=== PATIENT | male | born 1955 | race Caucasian/White ===

== ENCOUNTER 2018-10-29 20:29 | Inpatient (IN) ==
[2018-10-29] MEDS ORDERED: ONDANSETRON 4 MG/2 ML VIAL IV STA (20:59)
[2018-10-29] MEDS ORDERED: MORPHINE 4 MG/1 ML VIAL IV STA (20:59)
[2018-10-29] MEDS ORDERED: ALUM/MAG/SIMETH/LIDO VISC 1:1 30 ML BOTTLE PO STA (20:59)
[2018-10-29] MEDS ORDERED: SODIUM CHLORIDE 0.9% 1,000 ML IV STA (20:59)
[2018-10-29 21:18] LABS: Basophils # 0.1 10*3/uL (0.0-0.2); Basophils % 0.4 % (0.0-0.8); Eosinophils # 0.1 10*3/uL (0.0-0.87); Eosinophils % 0.6 % (0.00-10.9); Hematocrit 50.5 VOL% (42.0-52.0); Hemoglobin 16.2 GM/DL (14.0-18.0); Immature Granulocytes % 0.5 %; Immature Granulocytes Absolute 0.07 #; Lymphocytes # 1.2 10*3/uL (1.4-4.0); Lymphocytes % 8.3 % (21.2-54.2); Mean Corpuscular HGB Conc 32.1 GM/DL (32-36); Mean Corpuscular Volume 94.2 FL (87-102); Mean Platelet Volume 11.3 FL (9.6-12.0); Monocytes % 9.3 % (1.7-12.7); Neutrophils % 80.9 % (38.7-73.9); Platelet Count 184 T/CUMM (130-400); Red Blood Count 5.36 MC/CUMM (3.8-5.5); Red Cell Distribution Width 12.5 % (9.3-17.3); White Blood Count 14.1 T/CUMM (4-12)
[2018-10-29 21:37] LABS: Amorphous Crystals,Urine Occasional /HPF (Few); Apearance,Urine CLOUDY (Clear); Bilirubin,Urine Negative (Negative); Blood, Urine Negative (Negative); Glucose,Urine (UA) Negative (Negative); Ketones,Urine Negative (Negative); Mucus,Urine Occasional /LPF (Occasional); Nitrite,Urine Negative (Negative); Protein,Urine 30 MG/DL; RBC,Urine 5 /HPF (0-4); Urine Color Yellow (Yellow); Urine Specific Gravity 1.018 (1.001-1.035); Urine Urobilinogen < 2.0 EU/DL (0.2-1.0)
[2018-10-29 21:41] LABS: Albumin 3.5 G/DL (3.4-5.0); Bilirubin,Total 0.4 MG/DL (0.2-1.0); Calcium 7.4 MG/DL (8.5-10.1); Osmolality,Calculated 276.7 MOS/KG (273-304); Total Protein 6.3 G/DL (6.4-8.3)
[2018-10-29] MEDS ORDERED: CEFEPIME 1,000 MG in SODIUM CHLORIDE 0.9% 100 ML IV STA (22:33)
[2018-10-29] MEDS ORDERED: ACETAMINOPHEN 325 MG TABLET PO PRN (22:38)
[2018-10-29] MEDS ORDERED: ONDANSETRON 4 MG/2 ML VIAL IV PRN (22:38)
[2018-10-29] MEDS ORDERED: DEXTROSE 5% NACL 0.45% 1,000 ML IV SCH (23:00)
[2018-10-30] MEDS ORDERED: cefOXitin 2,000 MG in SYRINGE 1 EACH IV SCH
[2018-10-30] MEDS ORDERED: ONDANSETRON 4 MG/2 ML VIAL IV PRN (00:15)
[2018-10-30] MEDS ORDERED: ACETAMINOPHEN 325 MG TABLET PO PRN (00:15)
[2018-10-30] MEDS: DEXTROSE 5% NACL 0.45% 1,000 ML IV SCH ×2 (00:33→10:46)
[2018-10-30 05:25] LABS: Basophils % 0.3 % (0.0-0.8); Eosinophils % 0.2 % (0.00-10.9); Hematocrit 49.8 VOL% (42.0-52.0); Immature Granulocytes % 0.6 %; Immature Granulocytes Absolute 0.09 #; Lymphocytes % 7.2 % (21.2-54.2); Mean Corpuscular HGB Conc 32.1 GM/DL (32-36); Mean Corpuscular Volume 94.7 FL (87-102); Mean Platelet Volume 11.4 FL (9.6-12.0); Monocytes % 10.6 % (1.7-12.7); Neutrophils % 81.1 % (38.7-73.9); Platelet Count 166 T/CUMM (130-400); Red Blood Count 5.26 MC/CUMM (3.8-5.5); Red Cell Distribution Width 12.6 % (9.3-17.3)
[2018-10-30 05:57] LABS: Albumin 3.1 G/DL (3.4-5.0); Calcium 7.2 MG/DL (8.5-10.1); Osmolality,Calculated 274.8 MOS/KG (273-304)
[2018-10-30] MEDS ORDERED: PANTOPRAZOLE 40 MG TABLET PO SCH (09:00)
[2018-10-30] MEDS: PANTOPRAZOLE 40 MG VIAL IV SCH (10:48)
[2018-10-30] MEDS ORDERED: CLINDAMYCIN INJ 900 MG in PREMIX 1 EACH IV ONE (12:13)
[2018-10-30] MEDS: METOPROLOL TARTRATE 25 MG TABLET PO SCH ×2 (12:25→22:02)
[2018-10-30] MEDS ORDERED: LIDOCAINE 1%/EPI INJ 20 ML VIAL ONE (14:04)
[2018-10-30] MEDS ORDERED: BUPIVACAINE 0.25% /EPI 10 ML VIAL ONE (14:04)
[2018-10-30] MEDS ORDERED: LEVOFLOXACIN INJ 100 ML IV ONE ×2 (18:21→18:22)
[2018-10-30] MEDS ORDERED: MICROFIBRILLAR COLLAGEN POWDER 1 GM CAN TOP ONE (19:14)
[2018-10-30] MEDS ORDERED: MIDAZOLAM 2 MG/2 ML VIAL ONE (20:02)
[2018-10-30] MEDS ORDERED: fentaNYL 100 MCG/2 ML VIAL ONE (20:02)
[2018-10-30] MEDS ORDERED: PROPOFOL 200 MG/20 ML VIAL IV ONE (20:02)
[2018-10-30] MEDS ORDERED: SEVOFLURANE 1 UNIT/15 MINUTE INH ONE (20:02)
[2018-10-30] MEDS ORDERED: LACTATED RINGERS 1,000 ML IV ONE (20:03)
[2018-10-30] MEDS ORDERED: PHENYLEPHRINE 1 MG/10 ML SYRINGE IV ONE (20:03)
[2018-10-30] MEDS ORDERED: ACETAMINOPHEN 1,000 MG/100 ML VIAL IV ONE (20:03)
[2018-10-30] MEDS ORDERED: ROCURONIUM 100 MG/10 ML VIAL IV ONE (20:03)
[2018-10-30 20:06] LABS: Hematocrit 48.9 VOL% (42.0-52.0); Hemoglobin 15.9 GM/DL (14.0-18.0)
[2018-10-31] MEDS: DEXTROSE 5% NACL 0.45% 1,000 ML IV SCH ×4 (01:38→20:51)
[2018-10-31 04:55] LABS: Basophils % 0.2 % (0.0-0.8); Hematocrit 45.1 VOL% (42.0-52.0); Hemoglobin 14.9 GM/DL (14.0-18.0); Immature Granulocytes % 0.5 %; Immature Granulocytes Absolute 0.08 #; Lymphocytes # 0.8 10*3/uL (1.4-4.0); Lymphocytes % 5.3 % (21.2-54.2); Mean Corpuscular Volume 93.2 FL (87-102); Mean Platelet Volume 11.5 FL (9.6-12.0); Monocytes % 9.8 % (1.7-12.7); Neutrophils % 84.2 % (38.7-73.9); Platelet Count 156 T/CUMM (130-400); Red Blood Count 4.84 MC/CUMM (3.8-5.5); Red Cell Distribution Width 12.8 % (9.3-17.3)
[2018-10-31 05:14] LABS: INR 1.4; PT Patient Result 14.7 SECS
[2018-10-31 05:16] LABS: Albumin 2.5 G/DL (3.4-5.0); Bilirubin,Total 1.2 MG/DL (0.2-1.0); Osmolality,Calculated 263.7 MOS/KG (273-304); Total Protein 5.6 G/DL (6.4-8.3)
[2018-10-31 05:26] LABS: Calcium 5.7 MG/DL (8.5-10.1)
[2018-10-31] MEDS ORDERED: CALCIUM GLUCONATE 2,000 MG in SODIUM CHLORIDE 0.9% 100 ML IV ONE (08:00)
[2018-10-31] MEDS: PANTOPRAZOLE 40 MG VIAL IV SCH (09:21)
[2018-10-31] MEDS: METOPROLOL TARTRATE 25 MG TABLET PO SCH ×2 (09:22→20:53)
[2018-10-31] MEDS: CALCIUM (CARBONATE) 600 MG TABLET PO SCH ×2 (09:22→20:53)
[2018-10-31] MEDS: DILTIAZEM CD 120 MG CAPSULE PO SCH (09:22)
[2018-10-31] MEDS: CIPROFLOXACIN INJ 400 MG in PREMIX 1 EACH IV SCH ×2 (10:49→22:47)
[2018-10-31] MEDS ORDERED: SIMVASTATIN 10 MG TABLET PO SCH (21:00)
[2018-10-31] MEDS ORDERED: ASPIRIN EC 81 MG TABLET PO SCH (21:00)
[2018-11-01] MEDS: DEXTROSE 5% NACL 0.45% 1,000 ML IV SCH ×2 (00:46→08:30)
[2018-11-01 05:12] LABS: Basophils % 0.2 % (0.0-0.8); Hematocrit 47.4 VOL% (42.0-52.0); Hemoglobin 15.4 GM/DL (14.0-18.0); Immature Granulocytes % 0.7 %; Immature Granulocytes Absolute 0.11 #; Lymphocytes # 0.8 10*3/uL (1.4-4.0); Lymphocytes % 5.4 % (21.2-54.2); Mean Corpuscular HGB Conc 32.5 GM/DL (32-36); Mean Corpuscular Volume 92.8 FL (87-102); Mean Platelet Volume 11.5 FL (9.6-12.0); Monocytes % 10.2 % (1.7-12.7); Neutrophils % 83.5 % (38.7-73.9); Platelet Count 161 T/CUMM (130-400); Red Blood Count 5.11 MC/CUMM (3.8-5.5); Red Cell Distribution Width 12.7 % (9.3-17.3); White Blood Count 15.4 T/CUMM (4-12)
[2018-11-01 05:56] LABS: Albumin 2.5 G/DL (3.4-5.0); Bilirubin,Total 0.9 MG/DL (0.2-1.0); Calcium 6.8 MG/DL (8.5-10.1); Osmolality,Calculated 261.7 MOS/KG (273-304); Total Protein 6.3 G/DL (6.4-8.3)
[2018-11-01] MEDS ORDERED: LEVOTHYROXINE 200 MCG TABLET PO SCH (06:30)
[2018-11-01] MEDS: DILTIAZEM CD 120 MG CAPSULE PO SCH (09:58)
[2018-11-01] MEDS: METOPROLOL TARTRATE 25 MG TABLET PO SCH (09:58)
[2018-11-01] MEDS: CALCIUM (CARBONATE) 600 MG TABLET PO SCH (09:59)
[2018-11-01] MEDS: PANTOPRAZOLE 40 MG VIAL IV SCH (09:59)
[2018-11-01] MEDS: CIPROFLOXACIN INJ 400 MG in PREMIX 1 EACH IV SCH (10:03)
[2018-11-01 16:48] VITALS: BP 164/95
== END 2018-11-01 16:10 | disposition home or self-care (01) | DRG 419 ==
LOC: N.ED 20:29 → N.EDINP 20:29 → N.3E 23:31
PROVIDERS: ADMIT Surgery; ATTEND Surgery
PROC: LAPCHOL (2018-10-30 17:50)

== ENCOUNTER 2021-06-07 10:01 | Inpatient (IN) ==
[2021-06-07 10:47] LABS: Basophils % 0.3 % (0.0-0.8); Eosinophils % 0.1 % (0.00-10.9); Hematocrit 39.2 VOL% (42.0-52.0); Hemoglobin 13.2 GM/DL (14.0-18.0); Immature Granulocytes % 0.6 %; Immature Granulocytes Absolute 0.04 #; Lymphocytes # 0.8 10*3/uL (1.4-4.0); Lymphocytes % 10.8 % (21.2-54.2); Mean Corpuscular HGB Conc 33.7 GM/DL (32-36); Mean Corpuscular Volume 92.5 FL (87-102); Mean Platelet Volume 9.4 FL (9.6-12.0); Monocytes % 19.7 % (1.7-12.7); Neutrophils % 68.5 % (38.7-73.9); Platelet Count 225 T/CUMM (130-400); Red Blood Count 4.24 MC/CUMM (3.8-5.5); Red Cell Distribution Width 13.2 % (9.3-17.3)
[2021-06-07 11:08] LABS: Albumin 2.9 G/DL (3.4-5.0); Band Neutrophils 3 % (0-10); Bilirubin,Total 0.4 MG/DL (0.20-1.00); Calcium 8.2 MG/DL (8.5-10.1); Lymphocytes 12 % (20-55); Metamyelocytes 1 %; Osmolality,Calculated 240.2 MOS/KG (273-304); Potassium 4.6 MMOL/L (3.5-5.1); Segmented Neutrophils 64 % (50-85); Total Cells Counted 100; Total Protein 6.2 G/DL (6.4-8.2)
[2021-06-07 11:09] LABS: Platelet Estimate Normal
[2021-06-07 11:35] LABS: Bacteria,Urine Occasional /HPF (Few); Bilirubin,Urine Negative (Negative); Blood, Urine Negative (Negative); Glucose,Urine (UA) Negative (Negative); Ketones,Urine Negative (Negative); Mucus,Urine Occasional /LPF (Occasional); Nitrite,Urine Negative (Negative); Protein,Urine Negative; RBC,Urine 2 /HPF (0-4); Squamous Epithelial Cell,Urine Occasional /HPF (0-10); Urine Appearance CLEAR (Clear); Urine Color Straw (Yellow); Urine Specific Gravity 1.006 (1.001-1.035); Urine Urobilinogen < 2.0 EU/DL (<2.0)
[2021-06-07] MEDS ORDERED: ACETAMINOPHEN 325 MG TABLET PO PRN (14:24)
[2021-06-07] MEDS ORDERED: GLUCAGON 1 MG VIAL IM PRN (14:24)
[2021-06-07] MEDS ORDERED: DEXTROSE 50% 25 GM/50 ML SYRINGE IV PRN (14:24)
[2021-06-07] MEDS ORDERED: ONDANSETRON 4 MG/2 ML VIAL IV PRN (14:24)
[2021-06-07] MEDS: SODIUM CHLORIDE 0.45% 1,000 ML IV SCH (14:43)
[2021-06-07 15:04] LABS: Calcium 8.4 MG/DL (8.5-10.1); Osmolality,Calculated 242.1 MOS/KG (273-304)
[2021-06-07 18:58] LABS: Calcium 8.4 MG/DL (8.5-10.1); Osmolality,Calculated 240.1 MOS/KG (273-304); Potassium 4.4 MMOL/L (3.5-5.1)
[2021-06-07] MEDS: ENOXAPARIN 40 MG/0.4 ML SYRINGE SUBCUT SCH (20:11)
[2021-06-07 23:01] LABS: Osmolality,Calculated 243.9 MOS/KG (273-304); Potassium 4.2 MMOL/L (3.5-5.1)
[2021-06-08 06:17] LABS: Basophils % 0.2 % (0.0-0.8); Eosinophils % 0.2 % (0.00-10.9); Hematocrit 40.5 VOL% (42.0-52.0); Hemoglobin 13.6 GM/DL (14.0-18.0); Immature Granulocytes % 0.6 %; Immature Granulocytes Absolute 0.04 #; Lymphocytes # 0.8 10*3/uL (1.4-4.0); Lymphocytes % 12.1 % (21.2-54.2); Mean Corpuscular HGB Conc 33.6 GM/DL (32-36); Mean Corpuscular Volume 92.7 FL (87-102); Mean Platelet Volume 10.1 FL (9.6-12.0); Monocytes % 15.8 % (1.7-12.7); Neutrophils % 71.1 % (38.7-73.9); Platelet Count 198 T/CUMM (130-400); Red Blood Count 4.37 MC/CUMM (3.8-5.5); Red Cell Distribution Width 13.1 % (9.3-17.3); White Blood Count 6.4 T/CUMM (4-12)
[2021-06-08 06:51] LABS: Calcium 8.5 MG/DL (8.5-10.1); Osmolality,Calculated 243.8 MOS/KG (273-304)
[2021-06-08 07:12] LABS: Band Neutrophils 1 % (0-10); Lymphocytes 10 % (20-55); Segmented Neutrophils 77 % (50-85); Total Cells Counted 100
[2021-06-08 07:13] LABS: Platelet Estimate Adequate
[2021-06-08] MEDS: MAGNESIUM CHLORIDE 64 MG TABLET PO SCH ×2 (08:26→21:46)
[2021-06-08] MEDS: LEVOTHYROXINE 200 MCG TABLET PO SCH (08:26)
[2021-06-08] MEDS: ASPIRIN EC 81 MG TABLET PO SCH (08:26)
[2021-06-08] MEDS: PANTOPRAZOLE 40 MG TABLET PO SCH (08:27)
[2021-06-08] MEDS: CALCIUM (CARBONATE) 500 MG TABLET PO SCH ×2 (08:27→21:46)
[2021-06-08] MEDS ORDERED: ERGOCALCIFEROL 50,000 UNIT CAPSULE PO SCH (09:00)
[2021-06-08] MEDS ORDERED: SIMVASTATIN 10 MG TABLET PO SCH (09:00)
[2021-06-08] MEDS: SODIUM CHLORIDE 0.45% 1,000 ML IV SCH (10:17)
[2021-06-08] MEDS: SODIUM CHLORIDE 0.9% 1,000 ML IV SCH ×2 (10:17→18:13)
[2021-06-08] MEDS ORDERED: LOVASTATIN 10 MG TABLET PO SCH ×2 (10:30→21:00)
[2021-06-08] MEDS ORDERED: LOVASTATIN 10 MG PO SCH (10:30)
[2021-06-08] MEDS: ALBUTEROL 2.5 MG/3 ML NEB RESP TX SCH ×3 (11:00→19:13)
[2021-06-08] MEDS: FLUTICASONE 50 MCG NASAL SPRAY 16 GM BOTTLE BOTH NARES SCH ×2 (11:54→21:46)
[2021-06-08] MEDS: IPRATROPIUM 0.06% NASAL SPRAY 15 ML BOTTLE BOTH NARES SCH ×3 (11:54→21:46)
[2021-06-08] MEDS: ENOXAPARIN 40 MG/0.4 ML SYRINGE SUBCUT SCH (21:46)
[2021-06-08] MEDS ORDERED: MAGNESIUM HYDROXIDE SUSP 30 ML UDCUP PO PRN (21:52)
[2021-06-08] MEDS ORDERED: ALBUTEROL 2.5 MG/3 ML NEB RESP TX PRN (21:52)
[2021-06-09] MEDS: SODIUM CHLORIDE 0.9% 1,000 ML IV SCH (04:15)
[2021-06-09 05:59] LABS: Basophils % 0.2 % (0.0-0.8); Eosinophils % 0.2 % (0.00-10.9); Hematocrit 40.5 VOL% (42.0-52.0); Hemoglobin 13.4 GM/DL (14.0-18.0); Immature Granulocytes % 0.6 %; Immature Granulocytes Absolute 0.03 #; Lymphocytes # 0.7 10*3/uL (1.4-4.0); Lymphocytes % 15.2 % (21.2-54.2); Mean Corpuscular HGB Conc 33.1 GM/DL (32-36); Mean Corpuscular Volume 94.2 FL (87-102); Mean Platelet Volume 9.4 FL (9.6-12.0); Monocytes % 16.3 % (1.7-12.7); Neutrophils % 67.5 % (38.7-73.9); Platelet Count 189 T/CUMM (130-400); Red Cell Distribution Width 13.2 % (9.3-17.3); White Blood Count 4.7 T/CUMM (4-12)
[2021-06-09 06:12] LABS: Calcium 7.2 MG/DL (8.5-10.1); Osmolality,Calculated 262.5 MOS/KG (273-304); Potassium 4.9 MMOL/L (3.5-5.1)
[2021-06-09 06:22] LABS: Band Neutrophils 2 % (0-10); Lymphocytes 12 % (20-55); Platelet Estimate Adequate; Segmented Neutrophils 77 % (50-85); Total Cells Counted 100
[2021-06-09] MEDS: LEVOTHYROXINE 200 MCG TABLET PO SCH (06:40)
[2021-06-09] MEDS: ASPIRIN EC 81 MG TABLET PO SCH (08:44)
[2021-06-09] MEDS: PANTOPRAZOLE 40 MG TABLET PO SCH (08:45)
[2021-06-09] MEDS: MAGNESIUM CHLORIDE 64 MG TABLET PO SCH (08:45)
[2021-06-09] MEDS: IPRATROPIUM 0.06% NASAL SPRAY 15 ML BOTTLE BOTH NARES SCH (08:50)
[2021-06-09] MEDS: FLUTICASONE 50 MCG NASAL SPRAY 16 GM BOTTLE BOTH NARES SCH (08:50)
[2021-06-09] MEDS: CALCIUM (CARBONATE) 500 MG TABLET PO SCH (08:50)
[2021-06-09 08:52] VITALS: BP 119/69
[2021-06-09] MEDS ORDERED: DOCUSATE SODIUM 100 MG CAPSULE PO SCH (09:00)
[2021-06-09] MEDS ORDERED: CALCIUM (CARBONATE) 500 MG TABLET PO ONE (11:00)
== END 2021-06-09 12:41 | disposition home or self-care (01) | DRG 641 ==
LOC: N.ED 10:01 → N.EDINP 10:01 → SUATTDRO 14:24 → N.EDINP 15:10 → N.5E 16:19 → SUATTDRO 06-08 08:49
PROVIDERS: ADMIT Internal Medicine; ATTEND Internal Medicine